=== PATIENT | female | born 1960 | race Caucasian/White ===

== ENCOUNTER 2018-07-05 10:19 | Day surgery (SDC) | payer BC ==
[2018-07-05] MEDS ORDERED: MIDAZOLAM 1 MG/ML 2 ML INJ ×2 (12:43)
[2018-07-05] MEDS ORDERED: FENTAnyl 50 MCG/ML VIAL (12:43)
== END 2018-07-05 14:38 | disposition home or self-care (01) ==
LOC: GIL 10:19
DX: K92.1 Melena (principal); K64.8 Other hemorrhoids; K57.30 Diverticulosis of large intestine without perforation or abscess without bleeding
CPT/HCPCS: 43239